=== PATIENT | female | born 1995 | race African-American/Black ===

== ENCOUNTER 2020-10-16 09:45 | Emergency (ER) | payer MEDICAID, OTHER ==
[~2020-10-16] VITALS: Ht 165.1 cm; Wt 72.0 kg
[2020-10-16] MEDS ORDERED: SODIUM CHLORIDE 0.9% 1,000 ML IV ONE (10:00)
[2020-10-16] MEDS ORDERED: ACETAMINOPHEN 325MG TABLET PO NR (10:15)
[2020-10-16 10:30] LABS: BASOPHILS % 0.8 % (0.0-2.0); EOSINOPHILS % 1.7 % (0.0-5.0); HEMATOCRIT. 36.7 % (36.0-48.0); HEMOGLOBIN. 11.9 g/dL (12.0-16.0); LYMPHOCYTES % 29.1 % (20.0-50.0); MEAN CORPUSCULAR HEMOGLOBIN 27.9 pg (28.0-32.0); MEAN CORPUSCULAR VOLUME 85.7 fL (81.0-99.0); MEAN PLATELET VOLUME 9.4 fl (7.4-10.4); MONOCYTES % 9.9 % (2.0-8.0); NEUTROPHILS % 58.5 % (40.0-76.0); PLATELET 263 x1000/uL (130-400); RED BLOOD CELL COUNT 4.28 mill/uL (4.2-5.4); RED CELL DISTRIBUTION WIDTH 18.5 % (11.6-14.6)
[2020-10-16 10:39] LABS: CHLORIDE 108 mEq/L (98-107)
[2020-10-16 10:40] LABS: CLARITY URINE CLEAR (CLEAR); COLOR URINE YELLOW (YELLOW); KETONES URINE NEGATIVE (NEGATIVE); LEUKOCYTE ESTERASE URINE 1+ (NEGATIVE); NITRITE URINE NEGATIVE (NEGATIVE); OCCULT BLOOD URINE NEGATIVE (NEGATIVE); PH URINE 5.5 (4.5-8.0); PROTEIN URINE NEGATIVE (NEGATIVE); SPECIFIC GRAVITY URINE 1.019 (1.005-1.030); UROBILINOGEN URINE 0.2 E.U./dL (0.2-1.0)
[2020-10-16 10:51] LABS: B-HCG QUANTITATIVE < 1 mIU/mL (<3)
[2020-10-16 10:57] LABS: *AMPHETAMINES SCREEN URINE NEGATIVE (NEGATIVE); *BARBITURATES SCREEN URINE NEGATIVE (NEGATIVE); *BENZODIAZEPINES SCREEN URINE NEGATIVE (NEGATIVE); *COCAINE SCREEN URINE NEGATIVE (NEGATIVE)
[2020-10-16 10:58] LABS: METHADONE URINE SCREEN NEGATIVE (NEGATIVE); OPIATES URINE SCREEN NEGATIVE (NEGATIVE); PHENCYCLIDINE URINE SCREEN NEGATIVE (NEGATIVE)
[2020-10-16 11:01] LABS: CANNABINOID URINE SCREEN PRESUMTIVE POSITIVE (NEGATIVE)
[2020-10-16] MEDS ORDERED: CEPH500C2 MT (12:13)
[2020-10-16] MEDS ORDERED: CEPHALEXIN 250MG CAPSULE PO NR (12:15)
[2020-10-16 12:40] VITALS: BP 123/67
== END 2020-10-16 12:40 | disposition home or self-care (01) ==
LOC: ER 09:45
DX: N93.8 Other specified abnormal uterine and vaginal bleeding (principal)
CPT/HCPCS: 36415; 76830; 76856; 80053; 80305; 81003; 81025; 84702; 85025; 86850; 86900; 86901; 96360; 99284; J7030; Z7610